=== PATIENT | female | born 1985 | race Caucasian/White ===

== ENCOUNTER 2017-05-25 19:05 | Emergency (ER) | payer MEDICAID ==
[~2017-05-25] VITALS: Ht 157.5 cm; Wt 66.5 kg
[2017-05-25] MEDS ORDERED: ipratropium/albuterol 3ml nebule NEB ONE (19:20)
[2017-05-25 19:39] LABS: BASOPHILS % (AUTO) 0.1 % (0-1); EOSINOPHILS # (AUTO) 0.1 X10'3 (0-0.9); EOSINOPHILS % (AUTO) 0.6 % (0-6); HEMATOCRIT 40.4 % (35.0-45.0); HEMOGLOBIN 13.8 g/dl (12.0-16.0); LYMPHOCYTES # (AUTO) 0.6 X10'3 (1.1-4.8); LYMPHOCYTES % (AUTO) 7.2 % (21-51); MEAN CORPUSCULAR HEMOGLOBIN 29.7 PG (27.0-31.0); MEAN CORPUSCULAR HGB CONC 34.2 % (33.0-36.5); MEAN CORPUSCULAR VOLUME 86.9 FL (78-98); MEAN PLATELET VOLUME 7.3 FL (7.4-10.4); MONOCYTES # (AUTO) 1.1 X10'3 (0-0.9); MONOCYTES % (AUTO) 13.5 % (2-12); NEUTROPHILS # (AUTO) 6.7 X10'3 (1.8-7.7); NEUTROPHILS % (AUTO) 78.6 % (42-75); PLATELET COUNT 252 X10'3 (140-440); RED BLOOD COUNT 4.66 X10'6 (4.20-5.60); RED CELL DISTRIBUTION WIDTH 12.9 % (11.5-14.5); WHITE BLOOD COUNT 8.5 X10'3 (4.5-11.0)
[2017-05-25] MEDS ORDERED: acetaminophen 325mg tablet PO ONE (19:45)
[2017-05-25 19:56] LABS: D-DIMER 0.35 MG/L FEU (0-0.50)
[2017-05-25] MEDS ORDERED: normal saline 1000ml 1,000 ML IV ONE ×3 (20:00→22:05)
[2017-05-25 20:02] LABS: ALANINE AMINOTRANSFERASE 29 U/L (12-78); ALBUMIN 4.1 G/DL (3.4-5.0); ALBUMIN/GLOBULIN RATIO 1.1 (1.1-1.5); ALKALINE PHOSPHATASE 82 IU/L (46-116); ANION GAP 8 (8-16); ASPARTATE AMINO TRANSFERASE 17 U/L (10-37); BILIRUBIN,TOTAL 0.4 MG/DL (0.1-1.0); BLOOD UREA NITROGEN 10 MG/DL (7-18); BUN/CREATININE RATIO 12.5 (6.6-38.0); CHLORIDE 103 MMOL/L (99-107); GLUCOSE 102 MG/DL (70-104); POTASSIUM 3.4 MMOL/L (3.5-5.1); SODIUM 136 MMOL/L (135-145); TOTAL CARBON DIOXIDE 25.5 MMOL/L (24-32); TOTAL PROTEIN 7.8 G/DL (6.4-8.2); eGFR 84 ML/MIN
[2017-05-25] MEDS ORDERED: ondansetron/PF 4mg/2ml inj IV ONE (20:10)
[2017-05-25 22:31] LABS: CLARITY,URINE Clear (Clear); COLOR,URINE Yellow (Yellow); GLUCOSE, URINE Negative (Neg); KETONES,URINE 80 mg/dl (Neg); LEUKOCYTE ESTERASE ,URINE Negative (Neg); NITRITES, URINE Negative (Neg); OCCULT BLOOD,URINE Negative (Neg); PH,URINE 6.5 (4.8-8.0); PROTEIN,URINE Negative (Neg)
[2017-05-25 22:32] LABS: URINE HCG NEGATIVE (NEG)
[2017-05-25 22:45] LABS: URINE AMPHETAMINE SCREEN NEGATIVE (Neg); URINE BARBITUATE SCREEN NEGATIVE (Neg); URINE BENZODIAZEPINES SCREEN NEGATIVE (Neg); URINE CANNABINOID SCREEN NEGATIVE (Neg); URINE COCAINE SCREEN NEGATIVE (Neg); URINE METHADONE SCREEN NEGATIVE (Neg); URINE OPIATE SCREEN NEGATIVE (Neg); URINE PHENCYCLIDINE SCREEN NEGATIVE (Neg)
[2017-05-25 23:04] LABS: UA COLLECTION TYPE CLN CATCH MIDSTREAM
[2017-05-25] MEDS ORDERED: ONDA4TAB9 PO (23:16)
[2017-05-25] MEDS ORDERED: PHEN-645 PO (23:16)
[2017-05-25] MEDS ORDERED: IBUP-1984 PO (23:16)
[2017-05-25 23:33] VITALS: BP 116/52
== END 2017-05-25 23:36 | disposition home or self-care (01) ==
LOC: ER 19:06
DX: E86.0 Dehydration (principal); B34.9 Viral infection, unspecified; R82.4 Acetonuria; F15.10 Other stimulant abuse, uncomplicated; F17.200 Nicotine dependence, unspecified, uncomplicated; Z88.1 Allergy status to other antibiotic agents; Z88.5 Allergy status to narcotic agent; Z79.899 Other long term (current) drug therapy
CPT/HCPCS: 36415; 71045; 80053; 80305; 81003; 81025; 83605; 84484; 85025; 85379; 87502; 87503; 94640; 94760; 96361; 96374; 99285; J2405; J7030

== ENCOUNTER 2020-05-24 14:31 | Emergency (ER) | payer MEDICAID ==
[~2020-05-24] VITALS: Ht 157.5 cm; Wt 81.8 kg
[2020-05-24] MEDS ORDERED: PENI500T2 PO (17:12)
[2020-05-24] MEDS ORDERED: CHLO473M3 PO (17:12)
[2020-05-24 17:41] VITALS: BP 131/55
== END 2020-05-24 17:38 | disposition home or self-care (01) ==
LOC: ER 14:32
DX: K08.89 Other specified disorders of teeth and supporting structures (principal); K02.9 Dental caries, unspecified; R68.84 Jaw pain; F15.90 Other stimulant use, unspecified, uncomplicated; Z88.1 Allergy status to other antibiotic agents; Z88.8 Allergy status to other drugs, medicaments and biological substances
CPT/HCPCS: 99283

== ENCOUNTER 2020-10-11 16:54 | Emergency (ER) | payer MEDICAID ==
[~2020-10-11] VITALS: Ht 157.5 cm; Wt 77.5 kg
[~2020-10-11 16:54] MED LIST: CHLO473M3 PO
[2020-10-11 18:01] LABS: BASOPHILS % (AUTO) 0.3 % (0-1); EOSINOPHILS # (AUTO) 0.1 X10'3 (0-0.9); EOSINOPHILS % (AUTO) 0.9 % (0-6); HEMATOCRIT 42.6 % (35.0-45.0); HEMOGLOBIN 14.3 g/dl (12.0-16.0); LYMPHOCYTES # (AUTO) 1.9 X10'3 (1.1-4.8); LYMPHOCYTES % (AUTO) 20.6 % (21-51); MEAN CORPUSCULAR HEMOGLOBIN 28.9 PG (27.0-31.0); MEAN CORPUSCULAR HGB CONC 33.6 g/dL (33.0-36.5); MEAN PLATELET VOLUME 7.5 FL (7.4-10.4); MONOCYTES # (AUTO) 0.8 X10'3 (0-0.9); NEUTROPHILS # (AUTO) 6.2 X10'3 (1.8-7.7); NEUTROPHILS % (AUTO) 69.2 % (42-75); PLATELET COUNT 329 X10'3 (140-440); RED BLOOD COUNT 4.96 X10'6 (4.20-5.60)
[2020-10-11 18:22] LABS: ALANINE AMINOTRANSFERASE 19 U/L (12-78); ALBUMIN 3.9 G/DL (3.4-5.0); ALKALINE PHOSPHATASE 86 IU/L (46-116); ANION GAP 11 (8-16); ASPARTATE AMINO TRANSFERASE 14 U/L (10-37); BILIRUBIN,TOTAL 0.4 MG/DL (0.1-1.0); BLOOD UREA NITROGEN 15 MG/DL (7-18); BUN/CREATININE RATIO 16.9 (6.6-38.0); CALCIUM 9.1 MG/DL (8.5-10.1); CHLORIDE 105 MMOL/L (99-107); CREATININE 0.89 MG/DL (0.40-0.90); GLUCOSE 95 MG/DL (70-104); LIPASE 74 U/L (73-393); POTASSIUM 4.1 MMOL/L (3.5-5.1); SODIUM 141 MMOL/L (135-145); TOTAL CARBON DIOXIDE 24.6 MMOL/L (24-32); TOTAL PROTEIN 7.7 G/DL (6.4-8.2); eGFR 72 ML/MIN
[2020-10-11 19:07] LABS: URINE HCG NEGATIVE (NEG)
[2020-10-11 19:10] LABS: CLARITY,URINE CLEAR (Clear); COLOR,URINE YELLOW (Yellow); GLUCOSE, URINE NEGATIVE (Neg); KETONES,URINE TRACE mg/dl (Neg); LEUKOCYTE ESTERASE ,URINE NEGATIVE (Neg); NITRITES, URINE NEGATIVE (Neg); OCCULT BLOOD,URINE NEGATIVE (Neg); PROTEIN,URINE NEGATIVE (Neg)
[2020-10-11] MEDS ORDERED: iohexol 300mg/ml 100ml inj. ONE (19:11)
[2020-10-11 19:16] LABS: UA COLLECTION TYPE NON-SPECIFIED
[2020-10-11] MEDS ORDERED: METR-159 PO (20:29)
[2020-10-11] MEDS ORDERED: AMOX-422 PO (20:29)
[2020-10-11] MEDS ORDERED: ONDA4TAB6 PO (20:33)
[2020-10-11 20:58] VITALS: BP 99/54
== END 2020-10-11 20:59 | disposition home or self-care (01) ==
LOC: ER 16:55
DX: K52.9 Noninfective gastroenteritis and colitis, unspecified (principal); N93.9 Abnormal uterine and vaginal bleeding, unspecified; F17.210 Nicotine dependence, cigarettes, uncomplicated; F12.10 Cannabis abuse, uncomplicated; Z88.1 Allergy status to other antibiotic agents; Z88.5 Allergy status to narcotic agent; Z79.899 Other long term (current) drug therapy
CPT/HCPCS: 36415; 74177; 80053; 81003; 81025; 83690; 85025; 87491; 87591; 99285; Q9967

== ENCOUNTER 2020-12-07 17:03 | Emergency (ER) | payer MEDICAID ==
[~2020-12-07] VITALS: Ht 157.5 cm; Wt 81.8 kg
[~2020-12-07 17:03] MED LIST changes: +ONDA4TAB6 PO
[2020-12-07] MEDS ORDERED: PRED20TA PO (17:19)
[2020-12-07] MEDS ORDERED: METR500T PO (17:19)
[2020-12-07] MEDS ORDERED: LIDO20SO16 PO (17:19)
[2020-12-07] MEDS ORDERED: PENI250T2 PO (17:19)
[2020-12-07] MEDS ORDERED: HYDR-3965 PO (17:22)
[2020-12-07 17:28] VITALS: BP 145/79
== END 2020-12-07 17:36 | disposition home or self-care (01) ==
LOC: ER 17:05
DX: K08.89 Other specified disorders of teeth and supporting structures (principal); F15.10 Other stimulant abuse, uncomplicated; Z88.1 Allergy status to other antibiotic agents; Z88.5 Allergy status to narcotic agent; Z79.899 Other long term (current) drug therapy; Z98.51 Tubal ligation status
CPT/HCPCS: 99283

== ENCOUNTER 2021-03-02 14:39 | Emergency (ER) | payer MEDICAID ==
[~2021-03-02] VITALS: Ht 157.5 cm; Wt 77.3 kg
[~2021-03-02 14:39] MED LIST changes: +LIDO20SO16 PO
[2021-03-02 15:27] VITALS: BP 145/57
--- NOTE | 2021-03-02 22:21 | NUR ---
pt left due to wait time
== END 2021-03-02 22:22 | disposition left against medical advice (07) ==
LOC: ER 14:40
DX: K08.89 Other specified disorders of teeth and supporting structures (principal); Z53.21 Procedure and treatment not carried out due to patient leaving prior to being seen by health care provider

== ENCOUNTER 2021-12-06 17:14 | Emergency (ER) | payer MEDICAID ==
[~2021-12-06] VITALS: Ht 157.5 cm; Wt 71.6 kg
[2021-12-06 17:17] VITALS: BP 155/114
[2021-12-06] MEDS ORDERED: LORazepam 1 MG tablet PO ONE (18:25)
[2021-12-06] MEDS ORDERED: ketorolac trometh inj. 60 MG/2 ML VIAL IM ONE (18:25)
[2021-12-06] MEDS ORDERED: ondansetron 4mg rapidly disintigrating tab PO ONE (18:35)
== END 2021-12-06 20:51 | disposition home or self-care (01) ==
LOC: ER 17:15
DX: U07.1 COVID-19 (principal); K08.89 Other specified disorders of teeth and supporting structures; R11.2 Nausea with vomiting, unspecified; F15.90 Other stimulant use, unspecified, uncomplicated; Z98.51 Tubal ligation status; Z88.1 Allergy status to other antibiotic agents; Z88.8 Allergy status to other drugs, medicaments and biological substances; Z79.899 Other long term (current) drug therapy
CPT/HCPCS: 87081; 87635; 87880; 96372; 99283; C9803; J1885

== ENCOUNTER 2022-11-30 09:34 | Emergency (ER) | payer MEDICAID ==
[~2022-11-30] VITALS: Ht 162.6 cm; Wt 66.4 kg
[2022-11-30 09:44] VITALS: TEMP 97.8
[2022-11-30] MEDS ORDERED: ondansetron/PF 4mg/2ml inj IV ONE (09:50)
[2022-11-30] MEDS ORDERED: normal saline 1000ml 1,000 ML IV ONE (09:50)
[2022-11-30] MEDS ORDERED: pantoprazole 40MG/NS 100ML BAG 100 ML IV ONE (09:50)
[2022-11-30 09:57] VITALS: BP 121/73; PULSE 84; RESP 18; O2SAT 99
[2022-11-30 10:25] LABS: BASOPHILS % (AUTO) 0.4 % (0-1); EOSINOPHILS % (AUTO) 0.3 % (0-6); HEMATOCRIT 39.3 % (35.0-45.0); HEMOGLOBIN 13.1 g/dl (12.0-16.0); LYMPHOCYTES # (AUTO) 1.5 X10'3 (1.1-4.8); LYMPHOCYTES % (AUTO) 23.8 % (21-51); MEAN CORPUSCULAR HEMOGLOBIN 28.8 PG (27.0-31.0); MEAN CORPUSCULAR HGB CONC 33.4 g/dL (33.0-36.5); MEAN PLATELET VOLUME 7.3 FL (7.4-10.4); MONOCYTES # (AUTO) 0.6 X10'3 (0-0.9); MONOCYTES % (AUTO) 9.4 % (2-12); NEUTROPHILS # (AUTO) 4.3 X10'3 (1.8-7.7); NEUTROPHILS % (AUTO) 66.1 % (42-75); PLATELET COUNT 297 X10'3 (140-440); RED BLOOD COUNT 4.57 X10'6 (4.20-5.60); WHITE BLOOD COUNT 6.5 X10'3 (4.5-11.0)
[2022-11-30 10:31] LABS: URINE HCG NEGATIVE (NEG)
[2022-11-30 10:34] LABS: CLARITY,URINE SLIGHTLY CLOUDY (Clear); COLOR,URINE YELLOW (Yellow); GLUCOSE, URINE NEGATIVE (Neg); KETONES,URINE 15 mg/dl (Neg); LEUKOCYTE ESTERASE ,URINE NEGATIVE (Neg); NITRITES, URINE NEGATIVE (Neg); OCCULT BLOOD,URINE NEGATIVE (Neg); PROTEIN,URINE NEGATIVE (Neg); UROBILINOGEN,URINE 0.2 E.U/dL (0.2-1.0)
[2022-11-30 10:38] LABS: UA COLLECTION TYPE CLN CATCH MIDSTREAM
[2022-11-30 10:47] LABS: MUCUS STRANDS MODERATE /LPF (Neg); SQUAMOUS EPITHELIAL CELL,UR MODERATE /LPF (FEW)
[2022-11-30 10:48] LABS: BACTERIA,URINE 1+ /HPF (Neg); RBC,URINE 0-2 /HPF (0-2); WBC,URINE 0-4 /HPF (0-4)
[2022-11-30 10:54] LABS: ALANINE AMINOTRANSFERASE 19 U/L (12-78); ALBUMIN 3.8 G/DL (3.4-5.0); ALBUMIN/GLOBULIN RATIO 1.2 (1.1-1.5); ALKALINE PHOSPHATASE 62 IU/L (46-116); ANION GAP 11 (8-16); ASPARTATE AMINO TRANSFERASE 11 U/L (10-37); BILIRUBIN,TOTAL 0.5 MG/DL (0.1-1.0); BLOOD UREA NITROGEN 13 MG/DL (7-18); BUN/CREATININE RATIO 16.5 (10.0-20.0); CALCIUM 9.2 MG/DL (8.5-10.1); CHLORIDE 107 MMOL/L (99-107); CREATININE 0.79 MG/DL (0.40-0.90); GLUCOSE 94 MG/DL (70-104); LIPASE < 50 U/L (73-393); SODIUM 141 MMOL/L (135-145); TOTAL CARBON DIOXIDE 22.6 MMOL/L (24-32); TOTAL PROTEIN 7.1 G/DL (6.4-8.2); eGFR 82 ML/MIN
[2022-11-30 11:06] LABS: APTT 29 SECONDS (22-32)
[2022-11-30] MEDS ORDERED: PANT-47 PO (11:06)
[2022-11-30] MEDS ORDERED: ONDA4TAB12 PO (11:06)
[2022-11-30 20:43] LABS: OCCULT BLOOD STOOL NEGATIVE (Neg)
== END 2022-11-30 12:02 | disposition home or self-care (01) ==
LOC: ER 09:35
DX: K52.9 Noninfective gastroenteritis and colitis, unspecified (principal); F15.90 Other stimulant use, unspecified, uncomplicated; Z98.51 Tubal ligation status; Z88.1 Allergy status to other antibiotic agents; Z88.5 Allergy status to narcotic agent; Z79.899 Other long term (current) drug therapy
CPT/HCPCS: 36415; 80053; 81001; 81025; 82272; 83690; 85025; 85610; 85730; 86885; 86900; 86901; 96374; 96375; 99284; C9113; J2405; J7030

== ENCOUNTER 2025-03-15 03:57 | Emergency (ER) | payer MEDICAID ==
[~2025-03-15] VITALS: Ht 157.5 cm; Wt 59.5 kg
[~2025-03-15 03:57] MED LIST changes: +CHLO473M13 PO; -CHLO473M3 PO; +ONDA-243 PO; +PANT-47 PO
--- NOTE | 2025-03-15 04:15 | Physician Documentation ---
History of Present Illness ~ Chief Complaint: Flank Pain Stated Complaint: LWR BACK PAIN Time Seen by MD: 04:07 Primary Medical Doctor: MINOR Mode of Arrival: POV HPI Patient presents to the emergency room for evaluation of left-sided back pain. Onset of symptoms three days ago but got worse tonight. She took some Tylenol yesterday that has state it did nothing. She has had nothing today. Mild nausea. Bladder and bowel reported to be regular. No fevers or prior instances. Thinks she may have a history of kidney stones. Medication Reconciliation Allergies: Coded Allergies: azithromycin (Verified Allergy, Unknown, 03/15/25) codeine (Verified Adverse Reaction, Mild, 03/15/25) STATES HAS NAUSEA Scheduled Chlorhexidine Gluconate (Periogard), 15 ML PO Q12H Lidocaine Hcl (Xylocaine Viscous), 5 ML PO Q2H PRN SORE THROAT Ondansetron Hcl (Zofran), 1 TAB PO Q6H Pantoprazole Sodium (PROTONIX tablet), 1 TAB PO DAILY Scheduled PRN ONDANSETRON ODT 4mg tablet (Ondansetron Odt), 1 TABLET PO Q6H PRN for nausea/vomiting Past Medical History Past Medical History: *GI/HEPATOBILIARY* Past Surgical History: tubal ligation Alcohol Use: None Drug Use: methamphetamine Lives with: Family Lives In: Home Occupation: employed Review of Systems ROS All review of systems negative except as per HPI Physical Exam Physical Exam Vital Signs: Temperature: 98.3, Source: Oral, Heart Rate: 86, Respiratory Rate: 16, BP: 112/58, Pulse Oximetry: 97, Weight: 59.550 Physical Exam General: Patient is awake, alert, oriented x4 in mild distress Head: Normocephalic and atraumatic. Eyes: Conjunctival normal. EOMI. PERRL. ENT: Mucous membranes moist. Neck: Supple, trachea is midline. Chest: Clear to auscultation bilaterally without rales, rhonchi, or wheezes. There is no accessory muscle use or retractions. Cardiac: RRR without murmurs, gallops, or rubs. Back: Tenderness to palpation to musculature of left paraspinal lumbar region Progress Results/Orders Results/Orders Completed Orders - SWAPNIL VAUGHN MD Urinalysis, Cult If Indicated (03/15/25 04:14) Hcg, Ur Ql (03/15/25 04:14) Ketorolac Trometh 15mg/Ml Vial (Toradol (03/15/25 04:20) Acetaminophen 1,000mg/100ml Iv (Ofirmev (03/15/25 04:20) Ondansetron Inj. (Zofran 4mg/2ml Vial) (03/15/25 04:20) Normal Saline 1000ml (0.9% Sodium Chlori (03/15/25 04:20) Dicyclomine Inj (Bentyl Inj) (03/15/25 04:20) Drug Screen, Urine (03/15/25 04:19) Medications Received in ER Medications (Trade) Dose Ordered Sig/Margarita Route PRN Reason Start Time Stop Time Status Last Admin Dose Admin (Toradol injection) 15 mg ONCE ONCE IV 03/15/25 04:20 03/15/25 04:21 DC 03/15/25 04:38 15 MG Acetaminophen 100 ml @ 400 mls/hr ONCE ONCE IV 03/15/25 04:20 03/15/25 04:34 DC 03/15/25 04:35 400 MLS/HR (Zofran 4mg/2ml vial) 4 mg ONCE ONCE IV 03/15/25 04:20 03/15/25 04:21 DC 03/15/25 04:36 4 MG Sodium Chloride 1,000 ml @ 1,000 mls/hr ONCE ONCE IV 03/15/25 04:20 03/15/25 05:19 DC 03/15/25 04:34 1,000 MLS/HR (Bentyl inj) 20 mg ONCE ONCE IM 03/15/25 04:20 03/15/25 04:21 DC 03/15/25 04:37 20 MG Vital Signs 03/15/25 03/15/25 03/15/25 03/15/25 04:06 04:11 04:38 05:15 Temp 98.3 Pulse 86 Resp 16 16 18 16 B/P (MAP) 112/58 Pulse Ox 97 Laboratory Tests Test 03/15/25 04:13 Urine Specimen Description Cln catch midstream Urine Color Yellow Urine Clarity Clear Urine pH 6.5 Urine Specific [place] 1.015 Urine Protein Negative Urine Glucose (UA) Negative Urine Ketones Negative Urine Occult Blood Negative Urine Nitrite Negative Urine Bilirubin Negative Urine Urobilinogen 0.2 Urine Leukocyte Esterase Negative Urine Culture Indicated Not ind Volume Urine Centrifuged 10 ml Urine HCG, Qualitative Negative Urine Comment Urine Opiates Screen Negative Urine Methadone Screen Negative Urine Fentanyl Screen Negative Urine Barbiturates Screen Negative Urine Phencyclidine Screen Negative Urine Amphetamines Screen Negative Urine Benzodiazepines Screen Negative Urine Cocaine Screen Negative Urine Cannabinoids Screen Positive Drug Screen Comment Medical Decision Making Additional information obtaine: N/A Findings Patient presents to the emergency room with left-sided back pain differentials include but are not limited to aortic pathology, musculoskeletal pain, pyelonephritis, kidney stone. Urinalysis is negative for blood or infection and he had not believe patient is suffering from kidney stone or pyelonephritis. Patient is too young for aortic pathology and I believe the risk of radiation exposure of CT scan outweighs any benefit at this juncture. Symptoms likely sec ondary to back strain and we will treat her as such. Differential Dx:Considerations: Bowel obstruction Departure Disposition: HOME / SELF CARE / HOMELESS Impression: Primary Impression: Lumbago Condition: Stable Discharge Instructions: Lumbosacral Strain Additional Instructions: Avoid bedrest. You may take ibuprofen and Tylenol together. I will give you some additional pain medicine should this not be sufficient. Referrals: NO PRIMARY CARE PROVIDER (PCP) Prescriptions Cyclobenzaprine* (Cyclobenzaprine*) 10 Mg Tablet 1 TAB PO Q8H for muscle spasms, #15 TAB 0 Refills Prov: SWAPNIL VAUGHN MD 03/15/25 Tramadol HCl (Tramadol HCl) 50 Mg Tablet 1 TAB PO Q6H PRN PRN for pain, #10 TAB Prov: SWAPNIL VAUGHN MD 03/15/25 Education Educated: Patient Educated regarding: diagnosis, treatment, need for follow up Signature Scribe Signature: No scribe Attestation: The note accurately reflects work and decisions made by me.Swapnil Vaughn MD 03/15/25 05:38 SWAPNIL VAUGHN MD Mar 15, 2025 04:15
[2025-03-15] MEDS: normal saline 1000ml 1,000 ML IV ONE (04:34)
[2025-03-15] MEDS: acetaminophen 1,000mg/100ml IV 100 ML IV ONE (04:35)
[2025-03-15] MEDS: ondansetron/PF 4mg/2ml inj IV ONE (04:36)
[2025-03-15] MEDS: dicyclomine 10mg/ml 2ml VIAL IM ONE (04:37)
[2025-03-15] MEDS: ketorolac trometh 15mg/ml vial 15 MG/ML ML IV ONE (04:38)
[2025-03-15 04:40] LABS: URINE HCG NEGATIVE (NEG)
[2025-03-15 04:49] LABS: LEUKOCYTE ESTERASE ,URINE NEGATIVE (Neg); NITRITES, URINE NEGATIVE (Neg); OCCULT BLOOD,URINE NEGATIVE (Neg)
[2025-03-15 04:56] LABS: UA COLLECTION TYPE CLN CATCH MIDSTREAM
[2025-03-15 04:59] LABS: URINE AMPHETAMINE SCREEN NEGATIVE (Neg); URINE BARBITUATE SCREEN NEGATIVE (Neg); URINE BENZODIAZEPINES SCREEN NEGATIVE (Neg); URINE CANNABINOID SCREEN POSITIVE (Neg); URINE COCAINE SCREEN NEGATIVE (Neg); URINE METHADONE SCREEN NEGATIVE (Neg); URINE OPIATE SCREEN NEGATIVE (Neg); URINE PHENCYCLIDINE SCREEN NEGATIVE (Neg)
[2025-03-15] MEDS ORDERED: CYCL-1 PO (05:38)
[2025-03-15] MEDS ORDERED: TRAM50TA2 PO (05:38)
[2025-03-15 05:50] VITALS: BP 118/74; PULSE 74; RESP 15; TEMP 98.3; O2SAT 99
== END 2025-03-15 05:57 | disposition home or self-care (01) ==
LOC: ER 03:58
DX: M54.50 Low back pain, unspecified (principal); R11.0 Nausea
CPT/HCPCS: 80305; 81003; 81025; 96365; 96372; 96375; 99284; J0131; J0500; J1885; J2405; J7030